=== PATIENT | male | born 1995 | race Caucasian/White ===

== ENCOUNTER → 2017-11-09 | Outpatient (CLI) | payer OTHER, MEDICARE ==
--- NOTE | 2017-11-11 08:08 | EEG PRO FEE REPORT ---
EEG INTERPRETATION PATIENT NAME: LINDSEY HAHN ROOM#: ORDER#: [id number] DATE OF STUDY: 11/09/2017 : 1995 REFERRING MD: EMILIANO MILLIGAN M.D. DIAGNOSIS: Epilepsy REPORT The background activity consists of 8-10 Hz alpha of medium voltage. Near the end of the tracing the record slows down to 6 Hz with moderate voltage. No definite seizure discharges are seen nor sharp theta is noted. No amplitude asymmetry is identified either some motion artifact is seen. IMPRESSION Normal EEG INTERPRETING PHYSICIAN: MINISTERIO BAEZA M.D. /: [id number] TT: [id number] ID: [id number] /: [id number] TD: [id number] JOB: [id number] cc:Chuy OLIVEROS M.D. >
== END ==
LOC: NEURO 08:25
PROVIDERS: ATTEND Pediatrics
DX: G40.909 Epilepsy, unspecified, not intractable, without status epilepticus (principal); F79 Unspecified intellectual disabilities
CPT/HCPCS: 95819